=== PATIENT | male | born 1980 | race Native Hawaiian/Other Pacific Islander ===

== ENCOUNTER 2018-11-20 09:46 | Emergency (ER) | payer OTHER ==
[2018-11-20 09:50] VITALS: BMI 28.5
[2018-11-20 10:04] VITALS: RESP 18; TEMP 97.2
[2018-11-20] MEDS ORDERED: Sodium Chloride 0.9% 1,000 ML IV STA ×2 (10:43→11:13)
[2018-11-20 10:51] LABS: BASO # 0.01 K/mm3 (0.0-2.0); BASO % 0.2 % (0.0-3.0); EOS # 0.2 (0.0-0.7); EOS % 2.4 % (1.5-5.0); HEMOGLOBIN 14.2 g/dL (14.0-18.0); LYMPH # 1.1 (1.2-3.4); LYMPH % 17.3 % (22.0-35.0); MEAN CELL VOLUME 82.3 fl (80.0-105.0); MEAN CORPUSCULAR HEMOGLOBIN 28.5 pg (25.0-35.0); MEAN CORPUSCULAR HGB CONC 34.6 g/dl (31.0-37.0); MEAN PLATELET VOLUME 9.5 fl (7.0-11.0); MONO # 0.3 (0.1-0.6); MONO % 4.5 % (1.0-6.0); RBC 4.98 10^6/uL (3.5-6.1); RED CELL DISTRIBUTION WIDTH 13.7 % (11.5-14.5); WHITE BLOOD COUNT 6.2 10^3/uL (4.5-11.0)
[2018-11-20 11:04] LABS: INR 1.01; PARTIAL THROMBOPLASTIN TIME 28.8 Seconds (26.9-38.3); PROTHROMBIN TIME 11.4 SECONDS (9.4-12.5)
[2018-11-20 11:15] LABS: TROPONIN I < 0.01 ng/mL
[2018-11-20 11:19] LABS: ALB/GLOB RATIO 1.3 (1.1-1.8); ALBUMIN 4.7 g/dL (3.0-4.8); ALT/SGPT 45 U/L (7-56); AST/SGOT 34 U/L (17-59); B-TYPE NATRIURETIC PEPTIDE 455 pg/mL (0-450); BLOOD UREA NITROGEN 21 mg/dL (7-21); CALCIUM 9.7 mg/dL (8.4-10.5); GFR NON-AFRICAN AMERICAN > 60
--- NOTE | 2018-11-20 11:19 | ED PDOC ---
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 Patient denies loss of consciousness. Patient notes that headache and dizziness have resolved at this time. Patient states his gasoline dragline operator informed him of weak heart operating at 80% with no diagnosis of CHF. Patient informs taking medications for hypertension in the mornings. Patient denies dizziness or loss of consciousness after taking hypertension medications. Patient denies any fevers, chills, chest pain, shortness of breath, dyspnea on exertion, leg swelling, cough, abdominal pain, vomiting, diarrhea, back pain, neck pain, or any other complaint. Time/Duration: Prior to Arrival Symptom Onset: Sudden Symptom Course: Resolved Activities at Onset: Light Context: Work (was in a meeting) Past Medical History - Provider Review Nursing Documentation Reviewed: Yes - Cardiac Hx Cardiac Disorders: Yes Hx Hypertension: Yes - Pulmonary Hx Respiratory Disorders: No - Neurological Hx Neurological Disorder: No - HEENT Hx HEENT Disorder: No - Renal Hx Renal Disorder: No - Endocrine/Metabolic Hx Endocrine Disorders: Yes Hx Diabetes Mellitus Type 2: Yes - Hematological/Oncological Hx Blood Disorders: No - Integumentary Hx Dermatological Disorder: No - Psychiatric Hx Substance Use: No Family/Social History Family/Social History: No Known Family HX, Hypertension (mother hx of hypotension, now hypertension). denies: CAD/[place] Smoking Status: Never Smoked Hx Alcohol Use: No Hx Substance Use: No Allergies/Home Meds Allergies/Adverse Reactions: Allergies No Known Allergies Allergy (Verified 11/20/18 09:50) Home Medications: Home Meds Medication Instructions Recorded Confirmed Furosemide [Lasix] 40 mg PO DAILY 11/20/18 11/20/18 Losartan [Cozaar] 100 mg PO DAILY 11/20/18 11/20/18 Nifedipine [Procardia Xl] 60 mg PO DAILY 11/20/18 11/20/18 Spironolactone [Aldactone] 25 mg PO DAILY 11/20/18 11/20/18 Review of Systems - Physician Review All systems were reviewed & negative as marked: Yes - Review of Systems Constitutional: absent: Fevers, Night Sweats Respiratory: absent: SOB, Cough Cardiovascular: absent: Chest Pain, PURI Gastrointestinal: Nausea. absent: Abdominal Pain, Diarrhea, Vomiting Musculoskeletal: absent: Back Pain, Neck Pain Neurological: Headache, Dizziness Physical Exam Vital Signs Reviewed: Yes Vital Signs Temp Pulse Resp BP Pulse Ox 11/20/18 09:46 97.2 F L 76 18 102/66 99 Temperature: Afebrile Blood Pressure: Hypotensive Pulse: Regular Respiratory Rate: Normal Appearance: Positive for: Well-Appearing, Non-Toxic, Comfortable Pain Distress: None Mental Status: Positive for: Alert and Oriented X 3 Finger Stick Blood Glucose: 170 - Systems Exam Head: Present: Atraumatic, Normocephalic Pupils: Present: PERRL Extroacular Muscles: Present: EOMI Conjunctiva: Present: Normal Mouth: Present: Moist Mucous Membranes Neck: Present: Normal Range of Motion Respiratory/Chest: Present: Clear to Auscultation, Good Air Exchange. No: Respiratory Distress, Accessory Muscle Use Cardiovascular: Present: Regular Rate and Rhythm, Normal S1, S2, Other (S3 sound: volume loudest at left lower sternal border). No: Murmurs Abdomen: No: Tenderness, Distention, Peritoneal Signs Back: Present: Normal Inspection Upper Extremity: Present: Normal Inspection. No: Cyanosis, Edema Lower Extremity: Present: Normal Inspection. No: Edema (no pitting edema) Neurological: Present: GCS=15, Speech Normal Skin: Present: Warm, Dry, Normal Color. No: Rashes Psychiatric: Present: Alert, Oriented x 3, Normal Insight, Normal Concentration Medical Decision Making ED Course and Treatment: 11/20/18 11:18 Impression: Patient is a 38 year old male who presents to the emergency department with complaints of dizziness, headache, and nausea after standing up a meeting [employer] OFFICE ADMINISTRATOR. Headache and dizziness have currently resolved. Differential Diagnosis included but are not limited to: Plan: -- CT Chest -- CT Head w/o Contrast -- Chest X-Ray -- EKG -- Labs -- IV Fluids -- Urinalysis -- Reassess and disposition Prior Visits: Notes and results from previous visits were reviewed. Progress Notes: 11/20/18 10:50 Patient is in orthostatic state. Patient's blood pressure while standing noted as 80/40. Will order fluid bolus. 11/20/18 11:10 Patient's D-dimer elevated to 1038. Patient and family agreeable to CTPE. 11/20/18 13:[address] patient about CT results. Patient understands and will relegate care to gasoline dragline operator and PMD for follow up. Presented opportunity for questions which were answered. - Lab Interpretations Lab Results: PT 11.4 SECONDS (9.4-12.5) 11/20/18 10:40 INR 1.01 11/20/18 10:40 APTT 28.8 Seconds (26.9-38.3) 11/20/18 10:40 D-Dimer, Quantitative 1038 ng/mlDDU (0-243) H 11/20/18 10:40 Troponin I < 0.01 ng/mL 11/20/18 10:40 11/20/18 10:40 11/20/18 10:40 Lab Results 11/20/18 10:40: Sodium 141, Potassium 4.0, Chloride 103, Carbon Dioxide 28, Anion Gap 13, BUN 21, Creatinine 1.3, Est GFR ( Amer) > 60, Est GFR (Non- Af Amer) > 60, Random Glucose 165 H, Calcium 9.7, Magnesium 1.7, Total Bilirubin 1.1, AST 34, ALT 45, Alkaline Phosphatase 44, Troponin I < 0.01, NT-Pro-B Natriuret Pep 455 H, Total Protein 8.3, Albumin 4.7, Globulin 3.6, Albumin/Globulin Ratio 1.3 11/20/18 10:40: PT 11.4, INR 1.01, APTT 28.8, D-Dimer, Quantitative 1038 H 11/20/18 10:40: WBC 6.2, RBC 4.98, Hgb 14.2, Hct 41.0 L, MCV 82.3, MCH 28.5, MCHC 34.6, RDW 13.7, Plt Count 197, MPV 9.5, Neut % (Auto) 75.6 H, Lymph % (Auto) 17.3 L, [place] % (Auto) 4.5, Eos % (Auto) 2.4, Baso % (Auto) 0.2, Lymph # (Auto) 1.1 L, [place] # (Auto) 0.3, Eos # (Auto) 0.2, Baso # (Auto) 0.01, Absolute Neuts (auto) 4.72 I have reviewed the lab results: Yes - RAD Interpretation Narrative RAD Interpretations (Text): 11/20/18 11:33 Chest X-Ray shows: FINDINGS: LUNGS: No active pulmonary disease. PLEURA: No significant pleural effusion identified, no pneumothorax apparent. CARDIOVASCULAR: No aortic atherosclerotic calcification present. Mild cardiomegaly no pulmonary vascular congestion. OSSEOUS STRUCTURES: No significant abnormalities. VISUALIZED UPPER ABDOMEN: Normal. OTHER FINDINGS: None. IMPRESSION: No active disease. 11/20/18 12:47 CT Head w/o contrast shows: FINDINGS: HEMORRHAGE: No intracranial hemorrhage. BRAIN: No mass effect or edema. Chronic lacunar infarcts are seen in the basal ganglia and deep white matter bilaterally. VENTRICLES: Unremarkable. No hydrocephalus. CALVARIUM: Unremarkable. PARANASAL SINUSES: Unremarkable as visualized. No significant inflammatory changes. MASTOID AIR CELLS: Unremarkable as visualized. No inflammatory changes. OTHER FINDINGS: None. IMPRESSION: No acute intracranial findings 11/20/18 12:58 CT Chest w/ contrast shows: FINDINGS: PULMONARY ARTERIES: Unremarkable. No pulmonary embolism. AORTA: No acute findings. No thoracic aortic aneurysm. No aortic atherosclerotic calcification or mural plaque present. LUNGS: Unremarkable. No nodule, mass or pulmonary consolidation. PLEURAL SPACES: Unremarkable. No effusion or pneumothorax. HEART: Cardiac size appears enlarged. Main pulmonary artery is dilated to 3.8 cm with pulmonary artery hypertension in question. Clinically correlate. Ratio of r ight to left ventricles appears normal grossly in terms of volume. A small aberrant or congenital variant vein is seen posterior to the aortic arch. LYMPH NODES: No significant lymphadenopathy. BONES, CHEST WALL: Unremarkable. No fracture or destructive lesion OTHER FINDINGS: Unremarkable. IMPRESSION: No CT evidence of pulmonary embolus at this time. No infiltrate, pleural or pericardial effusion appreciated either. No significant lymphadenopathy. Cardiomegaly. Dilatation of the main pulmonary artery segment may indicate pulmonary artery hypertension. Clinically correlate further. Radiology Orders: 11/20/18 10:15 CHEST PORTABLE [RAD] Stat 11/20/18 11:13 ANGIO CHEST PE PROTOCOL [CT] Stat Rotary Swaging Machine Operator: Radiologist - EKG Interpretation EKG Interpretation (Text): 11/20/18 09:52 Reviewed EKG, shows: NSR at [address] 0[address] depressions in aVL, V5-V6. Interpreted by ED Physician: Yes Type: 12 lead EKG - Medication Orders Current Medication Orders: Sodium Chloride (Sodium Chloride 0.9%) 1,000 mls @ 999 mls/hr IV .Q1H1M STA Stop: 11/20/18 11:43 Last Admin: 11/20/18 10:46 Dose: 999 mls/hr eMAR Start Stop Document 11/20/18 10:46 [facility] (Rec: 11/20/18 10:47 [id number]) Intravenous Solution Start Date 11/20/18 Start Time 10:47 End Date 11/20/18 End time 11:47 Total Infusion Time 60 Sodium Chloride (Sodium Chloride 0.9%) 1,000 mls @ 999 mls/hr IV .Q1H1M STA Stop: 11/20/18 12:13 11/20/18 12:01 Sodium Chloride (Sodium Chloride 0.9%) 1,000 mls @ 999 mls/hr IV .Q1H1M STA Stop: 11/20/18 12:13 Last Admin: 11/20/18 11:51 Dose: 999 mls/hr eMAR Start Stop Document 11/20/18 11:51 [facility] (Rec: 11/20/18 11:51 [id number]) Intravenous Solution Start Date 11/20/18 Start Time 11:51 End Date 11/20/18 End time 12:51 Total Infusion Time 60 Discontinued Medications Sodium Chloride (Sodium Chloride 0.9%) 1,000 mls @ 999 mls/hr IV .Q1H1M STA Stop: 11/20/18 11:43 Last Admin: 11/20/18 10:46 Dose: 999 mls/hr eMAR Start Stop Document 11/20/18 10:46 [facility] (Rec: 11/20/18 10:47 [id number]) Intravenous Solution Start Date 11/20/18 Start Time 10:47 End Date 11/20/18 End time 11:47 Total Infusion Time 60 - Scribe Statement The provider has reviewed the documentation as recorded by the Scribbella Bradshaw All medical record entries made by the Scribe were at my direction and personally dictated by me. I have reviewed the chart and agree that the record accurately reflects my personal performance of the history, physical exam, medical decision making, and the department course for this patient. I have also personally directed, reviewed, and agree with the discharge instructions and disposition. Disposition/Present on Arrival - Present on Arrival Any Indicators Present on Arrival: No History of DVT/PE: No History of Uncontrolled Diabetes: No Urinary Catheter: No History of Decub. Ulcer: No History Surgical Site Infection Following: None - Disposition Have Diagnosis and Disposition been Completed?: Yes Diagnosis: Dizziness, Orthostatic hypotension Disposition: HOME/ ROUTINE Disposition Time: 13:28 Patient Plan: Discharge Discharge Instructions (ExitCare): Vertigo (a Type of Dizziness) (DC), Orthostatic Hypotension (DC) Print Language: SWEDISH Additional Instructions: All medical record entries made by the Scribe were at my direction and personally dictated by me. I have reviewed the chart and agree that the record accurately reflects my personal performance of the history, physical exam, medical decision making, and the department course for this patient. I have also personally directed, reviewed, and agree with the discharge instructions and disposition Please follow up with your gasoline dragline operator. Referrals: Cruz Richmond MD [Staff Provider] - Follow up with primary Forms: [employer] (Lithuanian), WORK NOTE
--- NOTE | 2018-11-20 11:36 | RAD ---
Date of service: 11/20/2018 HISTORY: dizziness COMPARISON: No prior. FINDINGS: LUNGS: No active pulmonary disease. PLEURA: No significant pleural effusion identified, no pneumothorax apparent. CARDIOVASCULAR: No aortic atherosclerotic calcification present. Mild cardiomegaly no pulmonary vascular congestion. OSSEOUS STRUCTURES: No significant abnormalities. VISUALIZED UPPER ABDOMEN: Normal. OTHER FINDINGS: None. IMPRESSION: No active disease.
[2018-11-20 12:03] LABS: URINE BILIRUBIN NEGATIVE (NEGATIVE); URINE BLOOD NEGATIVE (NEGATIVE); URINE GLUCOSE (UA) NEGATIVE (NEGATIVE); URINE LEUKOCYTE ESTERASE NEGATIVE Leu/uL (NEGATIVE); URINE PROTEIN NEGATIVE mg/dL (<30 mg/dL); URINE UROBILINOGEN 0.2 E.U./dL (<1 E.U./dL)
[2018-11-20] MEDS ORDERED: Iohexol 350 MG/100 ML VIAL ONE (12:04)
[2018-11-20 12:13] VITALS: O2SAT 98
[2018-11-20 12:16] LABS: URINE APPEARANCE CLEAR (CLEAR); URINE COLOR YELLOW (YELLOW)
--- NOTE | 2018-11-20 12:50 | CT ---
Date of service: 11/20/2018 PROCEDURE: CT HEAD WITHOUT CONTRAST. HISTORY: dizziness COMPARISON: None available. TECHNIQUE: Axial computed tomography images were obtained through the head/brain without intravenous contrast. Radiation dose: Total exam DLP = 946.67 mGy-cm. This CT exam was performed using one or more of the following dose reduction techniques: Automated exposure control, adjustment of the mA and/or kV according to patient size, and/or use of iterative reconstruction technique. FINDINGS: HEMORRHAGE: No intracranial hemorrhage. BRAIN: No mass effect or edema. Chronic lacunar infarcts are seen in the basal ganglia and deep white matter bilaterally. VENTRICLES: Unremarkable. No hydrocephalus. CALVARIUM: Unremarkable. PARANASAL SINUSES: Unremarkable as visualized. No significant inflammatory changes. MASTOID AIR CELLS: Unremarkable as visualized. No inflammatory changes. OTHER FINDINGS: None. IMPRESSION: No acute intracranial findings
--- NOTE | 2018-11-20 13:01 | CT ---
Date of service: 11/20/2018 PROCEDURE: CT Chest with contrast (Pulmonary Angiogram) HISTORY: SOB w/ elevated D-dimer orthostatic BP COMPARISON: None available. TECHNIQUE: Axial computed tomography images were obtained of the chest in the pulmonary arterial phase of enhancement. Coronal and sagittal reformatted images were created and reviewed. Intravenous contrast dose: Omnipaque 350, 100 cc Radiation dose: Total exam DLP = 737.65 mGy-cm. This CT exam was performed using one or more of the following dose reduction techniques: Automated exposure control, adjustment of the mA and/or kV according to patient size, and/or use of iterative reconstruction technique. FINDINGS: PULMONARY ARTERIES: Unremarkable. No pulmonary embolism. AORTA: No acute findings. No thoracic aortic aneurysm. No aortic atherosclerotic calcification or mural plaque present. LUNGS: Unremarkable. No nodule, mass or pulmonary consolidation. PLEURAL SPACES: Unremarkable. No effusion or pneumothorax. HEART: Cardiac size appears enlarged. Main pulmonary artery is dilated to 3.8 cm with pulmonary artery hypertension in question. Clinically correlate. Ratio of right to left ventricles appears normal grossly in terms of volume. A small aberrant or congenital variant vein is seen posterior to the aortic arch. LYMPH NODES: No significant lymphadenopathy. BONES, CHEST WALL: Unremarkable. No fracture or destructive lesion OTHER FINDINGS: Unremarkable. IMPRESSION: No CT evidence of pulmonary embolus at this time. No infiltrate, pleural or pericardial effusion appreciated either. No significant lymphadenopathy. Cardiomegaly. Dilatation of the main pulmonary artery segment may indicate pulmonary artery hypertension. Clinically correlate further.
[2018-11-20 14:34] VITALS: BP 130/62; PULSE 86
--- NOTE | 2018-11-20 19:10 | CARD ---
APPROVED REPORT Date of service: 11/20/2018 EKG Measurement Heart [id number] <Conclusion> Normal sinus rhythm Right bundle branch block Abnormal ECG
== END 2018-11-20 14:34 | disposition home or self-care (01) ==
LOC: ED 09:46
DX: R42 Dizziness and giddiness (principal); I95.1 Orthostatic hypotension; E11.9 Type 2 diabetes mellitus without complications; I10 Essential (primary) hypertension
CPT/HCPCS: 70450; 71045; 71275; 80053; 81003; 83735; 83880; 84484; 85025; 85378; 85610; 85730; 93005; 96360; 96361; 99285; J7030; Q9967